=== PATIENT | female | born 1945 | race African-American/Black ===

== ENCOUNTER 2019-09-22 05:28 | Emergency (ER) | payer OTHER ==
[2019-09-22 05:48] VITALS: TEMP 97.8; BMI 35.2
[2019-09-22 06:37] LABS: HEMATOCRIT 34.7 % (32.4-45.2); HEMOGLOBIN 11.9 GM/dL (10.7-15.3); MCH 32.9 pg (25.7-33.7); MCHC 34.3 g/dl (32.0-36.0); MEAN CELL VOLUME 96.1 fl (80-96); MEAN PLT VOLUME 10.8 fl (7.5-11.1); PLATELET COUNT 181 K/MM3 (134-434); RBC 3.61 M/mm3 (3.60-5.2); RDW 15.4 % (11.6-15.6); WHITE BLOOD COUNT 6.1 K/mm3 (4.0-10.0)
[2019-09-22 07:11] LABS: ALBUMIN 3.4 g/dl (3.4-5.0); BILIRUBIN,TOTAL 0.4 mg/dL (0.2-1); CALCIUM 8.6 mg/dL (8.5-10.1); CREATININE 0.7 mg/dL (0.55-1.3); POTASSIUM 3.3 mmol/L (3.5-5.1); TOT PROT 7.2 g/dl (6.4-8.2)
[2019-09-22] MEDS ORDERED: ACETAMINOPHEN 1000 MG/100 ML VIAL (NON FORMULARY) IVPB ONE (07:32)
[2019-09-22] MEDS ORDERED: ACETAMINOPHEN INJECTION 100 ML IVPB ONE (07:34)
[2019-09-22] MEDS ORDERED: POTASSIUM CHLORIDE TABS 20 MEQ TABLET.ER (FP) PO ONE ×2 (07:59→09:47)
--- NOTE | 2019-09-22 08:41 | EKG ---
Test Reason : Blood Pressure : / mmHG Vent. Rate : 077 BPM Atrial Rate : 077 BPM P-R Int : 132 ms QRS Dur : 072 ms QT Int : 398 ms P-R-T Axes : 015 010 040 degrees QTc Int : 450 ms POOR DATA QUALITY, INTERPRETATION MAY BE ADVERSELY AFFECTED NORMAL SINUS RHYTHM NORMAL ECG NO PREVIOUS ECGS AVAILABLE Confirmed by MD LENNOX, LUIS ([id number]) on 09/22/2019 8:41:32 AM Referred By: Confirmed By:LUIS HIGH MD
--- NOTE | 2019-09-22 09:06 | PDOC ---
Documentation entered by Sameera Umana SCRIBE, acting as scribe for Damian Jonas MD. Damian Jonas MD: This documentation has been prepared by the Dong escobar Adrianna, SCRIBE, under my direction and personally reviewed by me in its entirety. I confirm that the documentation accurately reflects all work, treatment, procedures, and medical decision making performed by me. History of Present Illness - General Chief Complaint: Pain, Acute Stated Complaint: L ARM PAIN Time Seen by Provider: 09/22/19 07:19 - History of Present Illness Initial Comments: The patient is a 73 year old female, with a significant PMH of HTN, who presents to the ED for evaluation of left shoulder pain for one day. Patient notes she began experiencing left shoulder pain yesterday, which became significantly worse this morning upon waking up. She states her pain is localized to the shoulder, and is exacerbated with lifting the LUE up, to the side, and behind the back. Denies any recent heavy lifting, falls, trauma or injury to the shoulder. Patient denies any chest pain, pain in the elbow, or pain in the wrist. She states she had a colonoscopy yesterday, but was lying on her right side during the procedure. Denies fever, chills, cough, or history of similar symptoms. Allergies: NKA, NKDA Surgical History: None reported Social History: No toxic habits Family History: Father passed from colon [place] PCP: Dr. Maia Gee (NOS) Past History - Past Medical History Allergies/Adverse Reactions: Allergies Allergy/AdvReac Type Severity Reaction Status Date / Time No Known Allergies Allergy Verified 09/22/19 05:38 Home Medications: Ambulatory Orders Amlodipine Besylate/Benazepril [Lotrel ] 1 each PO DAILY 09/22/19 Hydrochlorothiazide [Hctz -] 25 mg PO DAILY 09/22/19 COPD: No - Psycho Social/Smoking Cessation Hx Smoking History: Never smoked Review of Systems - Review of Systems Comments:: CONSTITUTIONAL: No fever, no chills, no fatigue EYES: No visual changes ENT: No ear pain, no sore throat CARDIOVASCULAR: No chest pain, no palpitations RESPIRATORY: No cough, no SOB GI: No abdominal pain, no nausea, no vomiting, no constipation, no diarrhea GENITOURINARY: No dysuria, no frequency, no hematuria MUSKULOSKELETAL: +left shoulder pain. No back pain, no myalgias SKIN: No rash NEURO: No headache *Physical Exam - Vital Signs Last Vital Signs Temp Pulse Resp BP Pulse Ox 97.8 F 85 18 156/47 L 95 09/22/19 05:35 09/22/19 05:35 09/22/19 05:35 09/22/19 05:35 09/22/19 05:35 - Physical Exam 09/22/19 09:04 EXAMINATION CONSTITUTIONAL: Well-appearing; well-nourished; in no apparent distress HEAD: Normocephalic; atraumatic EYES: PERRL; EOM intact ENMT: External appears normal; normal oropharynx NECK: Supple; non-tender; no cervical lymphadenopathy CARD: Normal S1, S2; no murmurs, rubs, or gallops RESP: Normal chest excursion with respiration; breath sounds clear and equal bilaterally; no wheezes, rhonchi, or rales ABD: Soft, non-distended; non-tender; no palpable organomegaly, no palpable hernias EXT: LUE: No obvious deformity; tenderness to palpation along the distal clavicle, AC joint and anterior aspect of the shoulder joint; pain on abduction/ flexion/extension at the shoulder joint, most prominent upon external rotation at the shoulder joint; neurovascularly intact distally. No obvious deformity to right upper extremity, lower extremities bilaterally; full range of motion ( passive/active; neurovascularly intact distally); SKIN: Warm, dry, no rash NEURO: No focal neurological deficiencies. Heart Score/ECG Review - ECG Impressions Comment:: EKG performed at 6:06 on 09/22/2019 demonstrates rate of 77bpm, normal sinus rhythm, normal axis. No T wave inversions, no ST elevations. ED Treatment Course - LABORATORY CBC & Chemistry Diagram: 09/22/19 06:17 09/22/19 06:17 - ADDITIONAL ORDERS Additional order review: Laboratory Results 09/22/19 09/22/19 06:17 06:17 Sodium 143 Potassium 3.3 L Chloride 110 H Carbon Dioxide 26 Anion Gap 7 L BUN 21.0 H Creatinine 0.7 Est GFR (CKD-EPI)AfAm 98.23 Est GFR (CKD-EPI)NonAf 84.75 Random Glucose 112 H Calcium 8.6 Total Bilirubin 0.4 AST 22 ALT 24 Alkaline Phosphatase 97 Troponin I < 0.02 Total Protein 7.2 Albumin 3.4 09/22/19 06:17 RBC 3.61 MCV 96.1 H MCHC 34.3 RDW 15.4 MPV 10.8 - RADIOLOGY Radiology Studies Ordered: Category Date Time Status CHEST PA & LAT [RAD] Stat Radiology 09/22/19 07:30 Completed SHOULDER-LEFT [RAD] Stat Radiology 09/22/19 07:30 Ordered Radiograph Interpretation: EXAM#: TYPE/EXAM: RESULT: [id number] RAD/CHEST PA LAT Chest: Chest pain Impression: No acute chest pathology. Reported By: Goran Hart MD 09/22/19 08:21 EXAM#: TYPE/EXAM: RESULT: [id number] RAD/SHOULDER-LEFT Left shoulder: Pain. Impression: Arthritic changes with joint calcification. Reported By: Goran Hart MD 09/22/19 09:25 - Medications Given in the ED: ED Medications Discontinued Medications Generic Name Dose Route Start Last Admin Trade Name Freq PRN Reason Stop Dose Admin Acetaminophen 1,000 mg 09/22/19 07:32 09/22/19 07:41 Ofirmev Injection - IVPB 09/22/19 07:33 1,000 mg ONCE ONE Administration Medical Decision Making - Medical Decision Making 09/22/19 09:37 Patient is a 73-year-old female with history of hypertension who presents with atraumatic left shoulder pain. No evidence of septic arthritis is noted. Patient is afebrile, nontoxic-appearing. Chest x-ray as well as left shoulder x -rays reveal no evidence of fracture dislocation. Arthritic changes with calcifications are noted. I do not suspect an acute issues present at this time. Will encourage physical therapy with acetaminophen for pain with outpatient follow-up. Discharge - Discharge Information Problems reviewed: Yes Clinical Impression/Diagnosis: Hypokalemia Shoulder pain, left Qualifiers: Chronicity: acute Qualified Code(s): M25.512 - Pain in left shoulder Condition: Stable Disposition: HOME - Follow up/Referral Referrals: Maia Williamson [Primary Care Provider] - - Patient Discharge Instructions Patient Printed Discharge Instructions: DI for Shoulder Pain, DI for Osteoarthritis - Post Discharge Activity
[2019-09-22 10:15] VITALS: BP 135/73; PULSE 62
== END 2019-09-22 10:49 | disposition home or self-care (01) ==
LOC: JER 05:28
PROC: 3E033NZ Introduction of Analgesics, Hypnotics, Sedatives into Peripheral Vein, Percutaneous Approach (ICD-10-PCS; principal; 2019-09-22)
DX: M25.512 Pain in left shoulder (principal); I10 Essential (primary) hypertension
CPT/HCPCS: 36415; 71046-TC-FY; 73030-TC-LT-FY; 80053; 84484; 85027; 93005; 93010; 96374; 99285-25; J0131